=== PATIENT | female | born 1975 | race Caucasian/White ===

== ENCOUNTER 2016-10-20 22:46 | Emergency (ER) | payer BC ==
--- NOTE | ~2016-10-20 | CR72 ---
[facility]. [facility] A Service of [facility] & [facility] RADIOLOGY TEXT RESULTS PATIENT: LINNEA MORRISON LOCATION: SED : 73 UNIT #: [id number] AGE: [address]: Aníbal Rahman MD SEX: F ORDER DR: [id number] [place] [id number] E MR#: [id number] Acc #: [id number] NAME: LINNEA MORRISON : 1975 SEX: F STUDY DATE/TIME: 10/21/2016 0:06 UNIT: SED ROOM: STUDY DESCRIPTION: CR Chest Single View Portable Attending Physician: Aníbal Rahman M.D. Ordering Physician: Aníbal Rahman M.D. Primary Care Physician: Bella Leong A.P.R.N. MEDICAL IMAGING REPORT This report is preliminary unless electronic signature is present. EXAM Portable chest INDICATION Chest pain since yesterday. PROCEDURE Frontal view chest. COMPARISON 07/03/2014. FINDINGS Heart size is unchanged. There is no dense consolidation. No pleural fluid or pneumothorax. IMPRESSION No active process. Dictated by... Jay Deluna M.D. THIS IS AN ELECTRONICALLY VERIFIED REPORT Jay Deluna M.D. at 10/25/2016 7:23 AM KIKI/phill TD: 10/21/2016 09:51 JOB #: [id number] MEDICAL IMAGING REPORT Page 1 of 1
--- NOTE | ~2016-10-20 | EKG ---
PATIENT: LINNEA MORRISON UNIT #: [id number] Ventricular Rate: 88 BPM Atrial Rate: 88 BPM P-R Interval: 156 ms QRS Duration: 86 ms Q-T Interval: 404 ms QTC Calculation(Bezet): 488 ms P Milo: 85 degrees Calculated R Milo: 46 degrees Calculated T Milo: 39 degrees Diagnosis Line: Normal sinus rhythm Diagnosis Line: Prolonged QT Diagnosis Line: Abnormal ECG Diagnosis Line: When compared with ECG of 08-APR-2010 08:40, Diagnosis Line: QT has lengthened Diagnosis Line: Confirmed by AKREN MOTT MD ([id number]) on Diagnosis Line: 10/21/2016 7:12:28 PM INTERPRETING MD: PANTERA KWON
[~2016-10-20 22:46] MED LIST: FIORICET 50-321 EACH PO; FLEXERIL10 MG PO; GLUCOPHAGE XR500 MG PO; LEXAPRO20 MG PO; PHENTERMINE PO; ZYRTEC; [UNRECOGNIZED DRUG - OTHER]
[2016-10-20 23:32] LABS: BASOPHIL% 0.3 % (0-2.5); EOSINOPHIL# 0.2 X10e3 (0-0.7); EOSINOPHIL% 2.1 % (0.0-7.0); HEMATOCRIT 41.5 % (35.0-45.0); HEMOGLOBIN 13.7 gm/dL (12.0-16.0); LYMPHOCYTE# 3.7 X10e3 (1.0-3.5); LYMPHOCYTE% 41.1 % (17.0-45.0); MEAN CORPUSCULAR HEMOGLOBIN 26.4 PG (28-34); MEAN PLATELET VOLUME 7.5 FL (6.5-11.5); MONOCYTE# 0.6 X10e3 (0-1.0); MONOCYTE% 7.2 % (3.0-12.0); NEUTROPHIL# 4.4 X10e3 (1.5-7.1); NEUTROPHIL% 49.3 % (40-75); PLATELET COUNT 336 X10e3 (140-420); RED BLOOD COUNT 5.18 X10e (3.90-5.30); RED CELL DISTRIBUTION WIDTH 14.5 % (11.0-15.5)
[2016-10-20 23:35] LABS: INR 1.1; PROTHROMBIN TIME (PATIENT) 12.4 SECONDS (9.5-12.4)
[2016-10-20 23:39] LABS: DIFF IND NO
[2016-10-20 23:42] LABS: PARTIAL THROMBOPLASTIN TIME 31.6 SECONDS (25.6-38.1)
[2016-10-20 23:43] LABS: ALBUMIN SERUM 4.3 g/dL (3.5-5.0); BILIRUBIN, DIRECT 0.1 mg/dL (0.0-0.2); BILIRUBIN,INDIRECT 0.4 mg/dL (0.0-0.9); BILIRUBIN,TOTAL 0.5 mg/dL (0.2-2.0); BUN/CREATININE RATIO 12.5; CALCIUM SERUM 9.2 mg/dL (8.4-10.2); CREATININE SERUM 0.8 mg/dL (0.6-1.4); POTASSIUM 3.7 mmol/L (3.5-5.1); PROTEIN TOTAL SERUM 7.9 g/dL (6.0-8.3)
[2016-10-20 23:46] LABS: POC - CKMB 2.8 ng/mL (0.0-7.9); POC - TROPONIN <0.05 ng/mL (<=0.05)
[2016-10-20 23:50] LABS: DDIMER <200 NG/ML (0-200)
[2016-10-21 01:56] LABS: POC - CKMB 1.2 ng/mL (0.0-7.9); POC - TROPONIN <0.05 ng/mL (<=0.05)
== END 2016-10-21 02:18 | disposition home or self-care (01) ==
LOC: SED 22:46
PROVIDERS: Emergency Medicine
DX: R07.9 Chest pain, unspecified (principal)
CPT/HCPCS: 36415; 71010; 80048; 80076; 82553; 84484; 85025; 85379; 85610; 85730; 93005; 96374; 96375; 99284; J1885